=== PATIENT | male | born 1990 | race Caucasian/White ===

== ENCOUNTER 2018-06-11 00:35 | Emergency (ER) | payer SELFPAY, OTHER ==
[2018-06-11] MEDS: KETOROLAC 30 MG INJ IM (02:07)
== END 2018-06-11 03:39 | disposition home or self-care (01) ==
LOC: FTE 00:35
DX: S82.62XA Displaced fracture of lateral malleolus of left fibula, initial encounter for closed fracture (principal); X58.XXXA Exposure to other specified factors, initial encounter; Y92.9 Unspecified place or not applicable
CPT/HCPCS: 29505; 96372; 99284-25